=== PATIENT | female | born 1955 | race Caucasian/White ===

== ENCOUNTER → 2017-11-05 | Outpatient (CLI) | payer OTHER ==
[~2017-11-05] MED LIST: LIPITOR 10MG10 MG PO
== END ==
LOC: COL.RAD 13:44
DX: M19.031 Primary osteoarthritis, right wrist (principal); M18.11 Unilateral primary osteoarthritis of first carpometacarpal joint, right hand; S63.8X1A Sprain of other part of right wrist and hand, initial encounter

== ENCOUNTER → 2020-03-21 | Outpatient (CLI) | payer BC | LOC: MC.RAD 06:52 | DX: Z12.31 Encounter for screening mammogram for malignant neoplasm of breast (principal) ==

== ENCOUNTER 2021-01-19 16:04 | Outpatient (CLI) | payer BC ==
[2021-01-19] VITALS (12 sets, daily range): BP systolic 114–154; BP diastolic 42–91; PULSE 63–81; TEMP 101.4
[~2021-01-19] VITALS: Ht 162.6 cm; Wt 71.8 kg
[2021-01-19] MEDS ORDERED: VITAMIND3 5000 PO (16:52)
[2021-01-19] MEDS ORDERED: NIASPAN1000 MG PO (16:52)
[2021-01-19] MEDS ORDERED: NATURAL E400 IU PO (16:52)
[2021-01-19] MEDS ORDERED: CRESTOR40 MG PO (16:53)
[2021-01-19] MEDS ORDERED: BONIVA150 MG PO (16:53)
[2021-01-19] MEDS ORDERED: CENTRUM SILVER1 TAB PO (16:53)
[2021-01-19] MEDS ORDERED: SINGULAIR 110 MG/TAB PO (16:54)
--- NOTE | 2021-01-19 17:49 | NUR ---
Pt tolerated infusion and 1 hr observation period without issue. INT DC'd with catheter intact. She was assisted out to car by wheelchair.
== END 2021-01-19 18:00 ==
LOC: EUO 16:04
DX: U07.1 COVID-19 (principal)
CPT/HCPCS: Q0244

== ENCOUNTER → 2021-05-03 | Outpatient (CLI) | payer BC ==
[~2021-05-03] MED LIST changes: +BONIVA150 MG PO; +CENTRUM SILVER1 TAB PO; +CRESTOR40 MG PO; +NATURAL E400 IU PO; +NIASPAN1000 MG PO; +SINGULAIR 110 MG/TAB PO; +VITAMIND3 5000 PO
== END ==
LOC: MC.RAD 07:28
DX: Z12.31 Encounter for screening mammogram for malignant neoplasm of breast (principal)